=== PATIENT | female | born 1995 | race Caucasian/White ===

== ENCOUNTER 2017-02-13 21:31 | Emergency (ER) | payer BC, OTHER ==
[2017-02-13] MEDS ORDERED: Fluorescein Sodium TOPICAL* 1 MG TEST ONE (21:56)
[2017-02-13] MEDS ORDERED: Gentamicin 0.3% OPHTH.SOLN* 5 ML BTL LEFT EYE SCH (22:30)
[2017-02-13 22:59] VITALS: BP 117/68
--- NOTE | 2017-02-26 01:36 | ED ---
Kenji Mccoy Angela, scribed for Albert Harris MD on 02/14/17 at 0344 . Throat Pain/Nasal Congestion - HPI Summary HPI Summary: This pt is a 21 y/o female presenting to [facility] c/o left eye pain and redness since today. Pt reports that at 1400 her left eye was fine and by 1430 today her left eye became red. At onset of her redness and pain she was sitting in class. She states left eye discharge, blurry vision. Pt denies photophobia. Pt is allergic to ibuprofen. Pt currently takes vitamins and uses an inhaler for asthma. - History of Current Complaint Chief Complaint: EDEyeProblem Hx Obtained From: Patient Onset/Duration: Lasting Hours, Still Present Associated Signs And Symptoms: Negative: Dysphagia, Drooling, Wheezing, Hoarseness, Sinus Discomfort, Nasal Discharge Cough: None - Allergies/Home Medications Allergies/Adverse Reactions: Allergies Allergy/AdvReac Type Severity Reaction Status Date / Time Ibuprofen Allergy Shortness Verified 02/13/17 21:36 of Breath PMH/Surg Hx/FS Hx/Imm Hx Endocrine/Hematology History: Denies: Hx Diabetes Cardiovascular History: Denies: Hx Hypertension Respiratory History: Reports: Hx Asthma Infectious Disease History: No Infectious Disease History: Denies: Traveled Outside the [place] in Last 30 Days - Family History Known Family History: Negative: Hypertension, Diabetes - Social History Alcohol Use: None Substance Use Type: Reports: None Smoking Status (MU): Never Smoked Tobacco Review of Systems Negative: Fever, Chills Eyes: Other - Left eye pain and redness, left eye discharge Positive: Blurred Vision. Negative: Photophobia All Other Systems Reviewed And Are Negative: Yes Physical Exam - Summary Physical Exam Summary: Appearance: Well-appearing, Well-nourished Skin: Warm, Dry, No rash Eyes: PERRL, EOMI, sclera anicteric. Left eye redness. ENT: Normal Neck: Supple, nontender Respiratory: Clear to auscultation Cardiovascular: S1, S2, no murmur, no rub, no gallop Abdomen: Soft, nontender, no organomegaly Bowel sounds: Present Musculoskeletal: Normal, Strength/ROM Intact, no edema, pulses symmetrical Neurological: Normal, A&Ox3, cranial nerves II-XII wnl, follows commands, gait not tested, sensation intact to pin and light touch Psychiatric: affect normal, behavior appropriate, dressed appropriately, judgment intact Triage Information Reviewed: Yes Vital Signs On Initial Exam: Initial Vitals Temp Pulse Resp BP Pulse Ox 98.6 F 62 16 127/72 99 02/13/17 21:32 02/13/17 21:32 02/13/17 21:32 02/13/17 21:32 02/13/17 21:32 Vital Signs Reviewed: Yes Diagnostics - Vital Signs Vital Signs Temp Pulse Resp BP Pulse Ox 02/13/17 21:32 98.6 F 62 16 127/72 99 - Laboratory Lab Statement: Any lab studies that have been ordered have been reviewed, and results considered in the medical decision making process. EENT Course/Dx - Course Assessment/Plan: Pt is a 21 y/o female who presents with left eye pain and redness since today. Pt will be discharged with diagnosis of conjunctivitis. She will be dispensed gentamicin. - Diagnoses Provider Diagnoses: Conjunctivitis Discharge - Discharge Plan Condition: Stable Disposition: HOME Patient Education Materials: Conjunctivitis (ED) Referrals: Elisha Crowley MD [Primary Care Provider] - The documentation as recorded by the Kenji garcía Angela accurately reflects the service I personally performed and the decisions made by me, Albert Harris MD.
== END 2017-02-13 23:06 | disposition home or self-care (01) ==
LOC: ED 21:31
DX: H10.9 Unspecified conjunctivitis (principal); H57.12 Ocular pain, left eye; H53.8 Other visual disturbances
CPT/HCPCS: 99282; A9270-GY

== ENCOUNTER 2018-01-25 10:56 | Emergency (ER) | payer BC ==
[2018-01-25 11:33] VITALS: BP 137/74
--- NOTE | 2018-01-25 11:54 | UC ---
Lower Extremity/Ankle HPI - HPI Summary HPI Summary: L foot pain swelling after running, falling. - History of Current Complaint Chief Complaint: UCTrauma Stated Complaint: FALL - L FOOT/ANKLE INJ AND R HAND INJ Time Seen by Provider: 01/25/18 11:38 Hx Obtained From: Patient, Family/[employer] Consultant - mom Hx Last Menstrual Period: 01/06/18 ?: No Pain Intensity: 2 Aggravating Factor(s): Standing Alleviating Factor(s): Rest Able to Bear Weight: No Related History: Other - none - Allergies/Home Medications Allergies/Adverse Reactions: Allergies Allergy/AdvReac Type Severity Reaction Status Date / Time ibuprofen Allergy Severe Shortness Verified 01/25/18 11:34 of Breath Home Medications: Home Medications Norethindrone [Jolivette] 0.35 mg PO DAILY 01/25/18 [History Confirmed 01/25/18] PMH/Surg Hx/FS Hx/Imm Hx Previously Healthy: Yes - Surgical History Surgical History: None - Family History Known Family History: Negative: Hypertension, Diabetes - Social History Alcohol Use: None Substance Use Type: None Smoking Status (MU): Never Smoked Tobacco Review of Systems Constitutional: Negative Skin: Negative Neurovascular: Negative Musculoskeletal: Arthralgia, Decreased ROM, Edema Is Patient Immunocompromised?: No All Other Systems Reviewed And Are Negative: Yes Physical Exam Triage Information Reviewed: Yes Appearance: Well-Appearing Vital Signs: Initial Vital Signs Temp 98.3 F 01/25/18 11:28 Pulse 72 01/25/18 11:28 Resp 18 01/25/18 11:28 BP 137/74 01/25/18 11:28 Pulse Ox 99 01/25/18 11:28 Vital Signs Reviewed: Yes Musculoskeletal: Positive: Strength Intact, ROM Limited @ - L ankle due to pain. L knee unremarkable., Edema @ - L ankle Skin: Positive: Other - +bruising at L ankle Diagnostics - Radiology No standard instances Radiology Interpretation Completed By: Radiologist - IMPRESSION: NO ACUTE OSSEOUS INJURY. IF SYMPTOMS PERSIST, RECOMMEND REPEAT IMAGING. Lower Extremity Course/Dx - Course Course Of Treatment: L ankle pain w/ no fx on xray. swelling noted and can take nsaids if needed. stay off ankle for approx 2-4 wks as needed. - Differential Dx/Diagnosis Differential Diagnosis/HQI/PQRI: Arthritis, Bursitis, Sprain, Strain, Tendonitis , Tenosynovitis Provider Diagnoses: L ankle sprain Discharge - Sign-Out/Discharge Documenting (check all that apply): Patient Departure All imaging exams completed and their final reports reviewed: Yes - Discharge Plan Condition: Good Disposition: HOME Patient Education Materials: Ankle Sprain (ED) Referrals: No Primary Care Phys,NOPCP [Primary Care Provider] - Additional Instructions: elevate, ice and stay off for one to three weeks if needed. - Billing Disposition and Condition Condition: GOOD Disposition: Home
--- NOTE | 2018-01-25 12:17 | RAD ---
HISTORY: fall while running COMPARISONS: None VIEWS: 2 , Frontal and lateral views of the left foot FINDINGS: BONE DENSITY: Normal. BONES: There is no displaced fracture. JOINTS: There is no arthropathy. ALIGNMENT: There is no dislocation. SOFT TISSUES: Unremarkable. OTHER FINDINGS: None. IMPRESSION: NO ACUTE OSSEOUS INJURY. IF SYMPTOMS PERSIST, RECOMMEND REPEAT IMAGING.
== END 2018-01-25 12:31 | disposition home or self-care (01) ==
LOC: UCCORT 10:56
DX: S93.402A Sprain of unspecified ligament of left ankle, initial encounter (principal); W19.XXXA Unspecified fall, initial encounter; Y93.02 Activity, running; Y92.9 Unspecified place or not applicable; Z88.6 Allergy status to analgesic agent
CPT/HCPCS: 99211; G0463